=== PATIENT | female | born 1995 | race Caucasian/White ===

== ENCOUNTER → 2025-03-25 | Day surgery (SDC) | payer MEDICAID ==
[~2025-03-25] VITALS: Ht 165.1 cm; Wt 50.8 kg
[~2025-03-25] MED LIST: ACETAMINOPHEN 1,000MG/100ML PREMIX IV PRN; BUPIVACAINE HCL/PF 0.5% (5MG/ML) 10ML ONE; FAMOTIDINE 20MG/2ML VIAL IV PRN; HYDRALAZINE 20MG/ML VIAL IV PRN; HYDROMORPHONE HCL/PF 1MG/ML INJ IV PRN; LABETALOL 5MG/ML 4ML INJ IV PRN; LACTATED RINGERS 1,000 ML IV SCH; MEPERIDINE HCL/PF 25MG/ML CPJ IV PRN; ONDANSETRON HCL 4MG/2ML INJ IV PRN; SKIN ADHESIVE 0.7 GM EA TOP ONE
[2025-03-25 07:15] LABS: CLARITY URINE CLEAR (CLEAR); COLOR URINE YELLOW (YELLOW); GLUCOSE URINE NEGATIVE (NEGATIVE); KETONES URINE NEGATIVE (NEGATIVE); NITRITE URINE NEGATIVE (NEGATIVE); OCCULT BLOOD URINE NEGATIVE (NEGATIVE); PH URINE 6.0 (4.5-8.0); PROTEIN URINE NEGATIVE (NEGATIVE); SPECIFIC GRAVITY URINE 1.020 (1.005-1.030); UROBILINOGEN URINE 0.2 E.U./dL (0.2-1.0)
[2025-03-25 07:16] LABS: LEUKOCYTE ESTERASE URINE 1+ (NEGATIVE); UCG SCREEN NEGATIVE
[2025-03-25 07:17] LABS: UCG KIT EXPIRATION DATE 4-8-27; UCG KIT LOT# 0000994099
[2025-03-25 07:19] LABS: SQUAMOUS EPITHELIAL CELL URINE 1+ /lpf (RARE/1+)
[2025-03-25 07:21] LABS: RBC URINE 0-2 /hpf (0-2)
[2025-03-25 07:23] LABS: BACTERIA URINE 1+
== END | disposition home or self-care (01) ==
LOC: OR 05:47
PROVIDERS: ATTEND Surgery
DX: D17.1 Benign lipomatous neoplasm of skin and subcutaneous tissue of trunk (principal); Z79.899 Other long term (current) drug therapy; Z98.890 Other specified postprocedural states
CPT/HCPCS: 21931; 81003; 81025; 88304; J0665